=== PATIENT | male | born 1965 | race African-American/Black ===

== ENCOUNTER 2018-07-20 17:06 | Emergency (ER) | payer MEDICARE, MEDICAID ==
[~2018-07-20] VITALS: Ht 175.3 cm; Wt 64.4 kg
--- NOTE | 2018-07-20 17:06 | NUR ---
BIB RA 88,BLEEDING L ARM SHUNT EVEN AFTER 2 HRS OF CLAMPING AFTER DIALYSIS, PT A/Ox3
--- NOTE | 2018-07-20 17:30 | NUR ---
STARTED PIV RAC G20
[2018-07-20] MEDS ORDERED: LIDOCAINE 0.5% HCL 50 ML VIAL ONE (17:44)
[2018-07-20 17:56] LABS: EOSINOPHILS % (AUTO) 7.2 % (0.0-6.0); HEMATOCRIT 28 % (39-51); LYMPHOCYTES # (AUTO) 0.4 /CMM (0.8-4.8); LYMPHOCYTES % (AUTO) 7.2 % (20.0-44.0); MEAN CORPUSCULAR HGB CONC 33 g/dl (31.0-36.0); MEAN CORPUSCULAR VOLUME 97 fL (80-96); MONOCYTES # (AUTO) 0.5 /CMM (0.1-1.30); MONOCYTES % (AUTO) 8.5 % (2.0-12.0); NEUTROPHILS # (AUTO) 4.1 /CMM (1.8-8.9); NEUTROPHILS % (AUTO) 77.1 % (43.0-81.0); PLATELET COUNT (AUTO) 258 /CMM (150-450); RED BLOOD CELL COUNT(AUTO) 2.84 MIL/uL (4.5-6.0); WHITE BLOOD COUNT (AUTO) 5.4 K/uL (4.3-11.0)
[2018-07-20] MEDS ORDERED: GELATIN SPONGE,ABSORBABLE 1 SPONGE SPONGE TP ONE (17:58)
[2018-07-20] MEDS ORDERED: LIDOCAINE 1% INJ 50 ML MDV IJ ONE (18:00)
[2018-07-20 18:04] LABS: CALCIUM, SERUM 8.3 mg/dL (8.5-10.1); CREATININE 1.6 mg/dL (0.6-1.3)
--- NOTE | 2018-07-20 18:06 | NUR ---
CALLED DR LOTTIE COOK'S ANSWERING SERVICE AT . WAS PAGED.
[2018-07-20 18:16] LABS: POTASSIUM 2.3 mmol/L (3.5-5.1)
--- NOTE | 2018-07-20 18:42 | NUR ---
IV removed. Catheter intact and site benign. Pressure and 4x4 applied to site. No bleeding noted. Patient discharged to home in stable condition. Written and verbal after care instructions given. Patient verbalizes understanding of instruction.
[2018-07-20 18:44] VITALS: BP 137/64
== END 2018-07-20 18:45 | disposition home or self-care (01) ==
LOC: ER 17:08
DX: S41.112A Laceration without foreign body of left upper arm, initial encounter (principal); T82.838A Hemorrhage due to vascular prosthetic devices, implants and grafts, initial encounter; N18.6 End stage renal disease; L98.8 Other specified disorders of the skin and subcutaneous tissue; R94.31 Abnormal electrocardiogram [ECG] [EKG]; Z99.2 Dependence on renal dialysis; Z88.5 Allergy status to narcotic agent; W26.8XXA Contact with other sharp object(s), not elsewhere classified, initial encounter; Y93.89 Activity, other specified; Y92.89 Other specified places as the place of occurrence of the external cause; Y99.8 Other external cause status
CPT/HCPCS: 36415; 71045-TC; 80048-TC; 85025-TC; 85730-TC; A4606; A6402; J3490; Z7610

== ENCOUNTER 2018-08-18 14:48 | Inpatient (IN) | payer MEDICARE, MEDICAID ==
[~2018-08-18] VITALS: Ht 177.8 cm; Wt 61.2 kg
--- NOTE | 2018-08-18 14:54 | NUR ---
PT [facility] FROM [facility]; LIVES AT HOME; FOR SYNCOPAL EPISODE, PER REPORT PT HYPOTENSIVE, BS FELT PAD CUTTER 79, PT AAOX2-3, ABLE TO MAKE NEEDS KNOWN, RESPIRATIONS EVEN AND UNLABORED, NO SOB, NAD NOTED, PT ON MONITOR, [facility] Noe AT BEDSIDE
[2018-08-18] MEDS ORDERED: DEXTROSE 50%-WATER 50 ML DISP.SYRIN ONE (15:12)
[2018-08-18 15:19] LABS: HEMATOCRIT 23 % (39-51); HEMOGLOBIN 7.7 g/dL (13.5-17.5); MEAN CORPUSCULAR HGB CONC 34 g/dl (31.0-36.0); MEAN CORPUSCULAR VOLUME 101 fL (80-96); PLATELET COUNT (AUTO) 202 /CMM (150-450); RED BLOOD CELL COUNT(AUTO) 2.26 MIL/uL (4.5-6.0); WHITE BLOOD COUNT (AUTO) 4.4 K/uL (4.3-11.0)
[2018-08-18] MEDS ORDERED: DEXTROSE 50%-WATER 50 ML DISP.SYRIN IV ONE (15:30)
[2018-08-18] MEDS ORDERED: IV NS 0.9% 500 ML BAG IV ONE (15:30)
--- NOTE | 2018-08-18 15:37 | NUR ---
BS 132 AFTER 1AMP D50
[2018-08-18 15:50] LABS: ALBUMIN 2.5 g/dL (3.4-5.0); BILIRUBIN,DIRECT 0.4 mg/dL (0.0-0.2); BILIRUBIN,TOTAL 0.7 mg/dL (0.2-1.0); CALCIUM, SERUM 7.6 mg/dL (8.5-10.1); CREATININE 1.9 mg/dL (0.6-1.3); TOTAL PROTEIN, SERUM 6.1 g/dL (6.4-8.2)
[2018-08-18 15:56] LABS: POTASSIUM 1.9 mmol/L (3.5-5.1)
[2018-08-18] MEDS ORDERED: Magnesium 1GM/D5W 100ML PREMIX 100 ML IV STA (15:57)
[2018-08-18] MEDS ORDERED: POTASSIUM CHLORIDE 20 MEQ TAB.PRT.SR PO ONE ×2 (16:00→16:06)
[2018-08-18] MEDS ORDERED: METO25TA20 PO (16:03)
[2018-08-18] MEDS ORDERED: NIFE60TA69 PO (16:03)
[2018-08-18] MEDS ORDERED: FOLI0.8T22 PO (16:03)
[2018-08-18] MEDS ORDERED: LINA5TAB PO (16:03)
[2018-08-18] MEDS ORDERED: OLAN5TAB3 PO (16:03)
[2018-08-18] MEDS ORDERED: ONDA4TAB5 PO (16:03)
[2018-08-18] MEDS ORDERED: MIRT15TA7 PO (16:03)
[2018-08-18] MEDS ORDERED: GABA-532 PO (16:03)
[2018-08-18] MEDS ORDERED: SENN-22 PO (16:03)
[2018-08-18] MEDS ORDERED: LEVE100S PO (16:03)
[2018-08-18] MEDS ORDERED: CYAN10009 PO (16:03)
[2018-08-18] MEDS ORDERED: TEMA15CA PO (16:03)
[2018-08-18] MEDS ORDERED: Magnesium 1GM/D5W 100ML PREMIX 100 ML IV ONE ×2 (16:05→17:39)
--- NOTE | 2018-08-18 16:15 | NUR ---
MAGNENESIUM 1GM IVPB OVER 1HR STARTED AT 100ML/HR PER MD ORDER
[2018-08-18 16:22] LABS: LYMPHOCYTES % (MANUAL) 28 % (16-48); NEUTROPHILS % (MANUAL) 54 (42-76)
[2018-08-18 16:23] LABS: MONOCYTES % (MANUAL) 18 % (0-11.0)
[2018-08-18] MEDS: MGSO4/D5W 100 ML IV SCH ×2 (16:46→17:52)
[2018-08-18] MEDS ORDERED: ASPIRIN 81 MG TAB.CHEW PO STA (16:46)
[2018-08-18] MEDS ORDERED: ASPIRIN 81 MG TAB.CHEW ONE (16:59)
--- NOTE | 2018-08-18 17:40 | NUR ---
MONICA RN NOTES REPORT TAKEN FROM [facility]. WILL FOLLOW UP FOR SERAFIN.
--- NOTE | 2018-08-18 17:45 | NUR ---
REPORT GIVEN VANGIE CALDERON FOR SERAFIN
--- NOTE | 2018-08-18 18:09 | NUR ---
PT TRANSPORTED TO 111-[facility] VIA ACLS PROTOCOL
--- NOTE | 2018-08-18 18:12 | NUR ---
MONICA RN NOTES PT RECEIVED VIA [facility] TO 111-1. PT IS ON ROOM AIR; IV MAGNESIUM RUNNING VIA RAC IV. IV PATENT WITH NO S/SX INFECTION. MOSES AV SHUNT. PT IS A/OX4. FAMILY AT BEDSIDE. ON TELE SR 86. ORIENTED TO ROOM. VS TAKEN. MD WILL FOLLOW WITH ORDERS. BED IN LOCKED/LOWEST POSITION. CALL LIGHT IN REACH. WILL CONT TO MONITOR.
[2018-08-18 18:15] VITALS: BP 117/70
[2018-08-18] MEDS ORDERED: ZOLPIDEM TARTRATE 5 MG TABLET PO PRN (19:00)
[2018-08-18] MEDS ORDERED: Z GUARD REMEDY 2 OZ OINT TP PRN (19:00)
[2018-08-18] MEDS ORDERED: ONDANSETRON HCL/PF 4 MG/2 ML VIAL IVP PRN (19:00)
[2018-08-18] MEDS ORDERED: DEXTROSE 50%-WATER 50 ML DISP.SYRIN IV PRN (19:00)
--- NOTE | 2018-08-18 19:00 | NUR ---
RECEIVED PATIENT AWAKE,ALERT,ORIENTED ,COHERENT BUT FEELING VERY WEAK,DOES NOT TALK MUCH.NOT IN ANY DISTRESS,DEIES ANY CHEST CHEST PAIN.COMFORT CARE DONE.NEEDS ATTENDED.WILL GIVE POTASSIUM REPLACEMENT ORDERED.
--- NOTE | 2018-08-18 19:15 | NUR ---
MONICA RN NOTES REPORT GIVEN TO PM NURSE FOR SERAFIN. PT NOT IN DISTRESS. BED IN LOCKED/LOWEST POSITION/CALL LIGHT IN REACH. PM NURSE WILL CONT WITH ADMISSION PROCESS.
[2018-08-18] MEDS: POTASSIUM CL. PREMIX PERIPHER. 50 ML IV SCH ×4 (19:49→23:15)
[2018-08-18 20:00] VITALS: BP 93/49
[2018-08-18] MEDS: ACETAMINOPHEN 325 MG TABLET PO PRN (21:34)
[2018-08-18] MEDS: BLOOD SUGAR DIAGNOSTIC 1 EACH STRIP IN SCH ×2 (21:38→21:58)
[2018-08-19] VITALS (10 sets, daily range): BP systolic 96–130; BP diastolic 42–71
--- NOTE | 2018-08-19 | NUR ---
REMAINS STABLE,NO CHEST PAIN BUT STILL FEELING VERY WEAK,BUT WAS ABLE TO GET UP AND WLAK TO THE BATHROOM WITH A WALKER. NOT IN ANY DISTRESS.
[2018-08-19 02:31] LABS: CALCIUM, SERUM 7.8 mg/dL (8.5-10.1); CREATININE 2.4 mg/dL (0.6-1.3)
[2018-08-19 02:45] LABS: POTASSIUM 2.3 mmol/L (3.5-5.1)
--- NOTE | 2018-08-19 03:00 | NUR ---
CALLED MD SERVICE TO RELAY POTASSIUM LEVEL OF 2.3,AWAITING CALL BACK,BUT TEXT MESSAGE HAS BEEN SENT TO DR. HUFF.
[2018-08-19] MEDS ORDERED: POTASSIUM CHLORIDE 20 MEQ TAB.PRT.SR PO ONE ×2 (04:00→15:30)
[2018-08-19] MEDS: BLOOD SUGAR DIAGNOSTIC 1 EACH STRIP IN SCH ×4 (06:30→22:16)
[2018-08-19 07:03] LABS: BASOPHILS # (AUTO) 0.2 /CMM (0.0-0.2); BASOPHILS % (AUTO) 4.1 % (0.0-2.0); EOSINOPHILS % (AUTO) 0.8 % (0.0-6.0); LYMPHOCYTES # (AUTO) 0.5 /CMM (0.8-4.8); LYMPHOCYTES % (AUTO) 9.1 % (20.0-44.0); MEAN CORPUSCULAR HGB CONC 35 g/dl (31.0-36.0); MEAN CORPUSCULAR VOLUME 101 fL (80-96); MONOCYTES # (AUTO) 0.9 /CMM (0.1-1.30); MONOCYTES % (AUTO) 14.9 % (2.0-12.0); NEUTROPHILS # (AUTO) 4.1 /CMM (1.8-8.9); NEUTROPHILS % (AUTO) 71.1 % (43.0-81.0); PLATELET COUNT (AUTO) 147 /CMM (150-450); WHITE BLOOD COUNT (AUTO) 5.7 K/uL (4.3-11.0)
[2018-08-19 07:14] LABS: CALCIUM, SERUM 7.8 mg/dL (8.5-10.1); CREATININE 2.7 mg/dL (0.6-1.3)
[2018-08-19 07:34] LABS: POTASSIUM 2.5 mmol/L (3.5-5.1)
[2018-08-19 07:35] LABS: PHOSPHORUS 0.9 mg/dL (2.5-4.9)
--- NOTE | 2018-08-19 08:00 | NUR ---
MONICA RN NOTE RECEIVED PATIENT AWAKE,ALERT,ORIENTED NO C\O ANY DISTRESS,DENIES ANY CHEST CHEST PAIN.COMFORT CARE DONE.NEEDS ATTENDED. ON RA NO SOB NOTED AT THIS TIME , AV FISTULA WITH BRUIT SOUND AND THRILL , RT FA HL INTACT , BED IN LOWEST AND LOCKED POSITION , CALL LIGHT WITHIN REACH ON TELE MONITOR SR , PLAN OF CARE DISCUSSED WITH PATIENT , CALLED TO ION TALAVERA RN SCREED OPERATOR ,NOTICED THAT HG 6.6 AND K 2.[address] FURTHER ORDER WILL F\U
[2018-08-19 08:01] LABS: RED BLOOD CELL COUNT(AUTO) 1.87 MIL/uL (4.5-6.0)
[2018-08-19 08:02] LABS: HEMATOCRIT 19 % (39-51); HEMOGLOBIN 6.6 g/dL (13.5-17.5)
--- NOTE | 2018-08-19 08:30 | NUR ---
MONICA RN NOTE DR ZUÑIGA AT BEDSIDE . AWARE THAT HG 6.6 REORDER TO REPEAT CBC LATTER ON TODAY Addendum: 08/19/18 at 1829 by FREEDOM GUERRERO RN DR THA LEAL AT BEDSIDE
[2018-08-19] MEDS: POTASSIUM PHOSPHATE MM 5 MMOL in IV D5W 100 ML IV SCH ×2 (09:40→11:52)
[2018-08-19] MEDS: POTASSIUM CL. PREMIX PERIPHER. 50 ML IV SCH ×4 (11:37→15:46)
[2018-08-19] MEDS: ACETAMINOPHEN 325 MG TABLET PO PRN (11:40)
--- NOTE | 2018-08-19 12:38 | NUR ---
MONICA RN NOTE ION AT BEDSIDE AWARE OF PATIENT C\O BOTH LEGS PAIN WILL F\U , SPOKE WITH FAMILY
[2018-08-19 13:18] LABS: EOSINOPHILS % (MANUAL) 1 % (0-4); LYMPHOCYTES % (MANUAL) 17 % (16-48); MONOCYTES % (MANUAL) 7 % (0-11.0); NEUTROPHILS % (MANUAL) 75 (42-76)
[2018-08-19 13:42] LABS: BILIRUBIN,TOTAL 0.7 mg/dL (0.2-1.0); CALCIUM, SERUM 7.8 mg/dL (8.5-10.1); CREATININE 2.7 mg/dL (0.6-1.3); MAGNESIUM 1.8 mg/dL (1.8-2.4); PHOSPHORUS 1.1 mg/dL (2.5-4.9); TOTAL PROTEIN, SERUM 4.9 g/dL (6.4-8.2)
[2018-08-19 13:50] LABS: POTASSIUM 2.6 mmol/L (3.5-5.1)
[2018-08-19 14:00] LABS: BASOPHILS # (AUTO) 0.1 /CMM (0.0-0.2); EOSINOPHILS % (AUTO) 2.4 % (0.0-6.0); LYMPHOCYTES # (AUTO) 1.1 /CMM (0.8-4.8); LYMPHOCYTES % (AUTO) 20.2 % (20.0-44.0); MEAN CORPUSCULAR HGB CONC 35 g/dl (31.0-36.0); MEAN CORPUSCULAR VOLUME 102 fL (80-96); MONOCYTES # (AUTO) 0.7 /CMM (0.1-1.30); MONOCYTES % (AUTO) 13.7 % (2.0-12.0); NEUTROPHILS # (AUTO) 3.4 /CMM (1.8-8.9); NEUTROPHILS % (AUTO) 61.7 % (43.0-81.0); PLATELET COUNT (AUTO) 138 /CMM (150-450); WHITE BLOOD COUNT (AUTO) 5.5 K/uL (4.3-11.0)
[2018-08-19 14:01] LABS: RED BLOOD CELL COUNT(AUTO) 1.78 MIL/uL (4.5-6.0)
[2018-08-19 14:04] LABS: HEMATOCRIT 18 % (39-51); HEMOGLOBIN 6.3 g/dL (13.5-17.5)
--- NOTE | 2018-08-19 14:30 | NUR ---
MONICA STARKEY CALLED TO DR ALMAZAN LEFT A MESSAGE ABOUT HG 6.3 WILL AWAIT FOR RETURN CALL
--- NOTE | 2018-08-19 15:00 | NUR ---
MONICA RN NOTE SPOKE WITH ION TALAVERA NOTIFIED THAT HG 6.3 OK TO TRANSFUSE 1 INIT PRBC
--- NOTE | 2018-08-19 15:13 | NUR ---
MONICA RN NOTE CONSENT FOR BLOOD TRANSFUSION SIGNED BY PATIENT
--- NOTE | 2018-08-19 15:47 | NUR ---
MONICA VENCES NOTE DUPLICATE ORDER FOR HCL IV Addendum: 08/19/18 at 1830 by FREEDOM GUERRERO RN KCL DUPLICATE ORDER
--- NOTE | 2018-08-19 15:51 | NUR ---
MONICA RN NOTE DR ALMAZAN CALLED BACK OK TO TRANSFUSE 1 UNIT PRBC AND DO ADDITIONAL K PHOS INFUSION AND REPEAT CHEM 7 ,Mag,K,PHOS AFTER INFUSION PHOS
[2018-08-19] MEDS ORDERED: POTASSIUM CL. PREMIX PERIPHER. 50 ML IV SCH (16:00)
[2018-08-19] MEDS ORDERED: POTASSIUM PHOSPHATE MM 15 MMOL in IV D5W 250 ML IV SCH (16:00)
[2018-08-19] MEDS: Potassium Phosphate meq 11 MEQ in IV D5W 100 ML IV SCH ×2 (16:24→19:29)
[2018-08-19 16:27] LABS: BAND % (MANUAL) 1 % (0.0-5.0); EOSINOPHILS % (MANUAL) 3 % (0-4); LYMPHOCYTES % (MANUAL) 22 % (16-48); MONOCYTES % (MANUAL) 5 % (0-11.0); NEUTROPHILS % (MANUAL) 69 (42-76)
--- NOTE | 2018-08-19 16:52 | NUR ---
WINDOWS SERVER ADMINISTRATOR NOTE CALLED BLOOD BANK ,BLOOD NOT READY YET
--- NOTE | 2018-08-19 17:00 | NUR ---
DATABASE TECHNICIAN NOTE C\O BOTH LEGS PAIN ,STATED THAT TYLENOL NOT HELPING. ION VENCES ACCESS DATABASE DEVELOPER NOTIFIED WITH ORDER TRAMADOL GIVEN,ORDER CARRIED OUT
[2018-08-19] MEDS: TRAMADOL HCL 50 MG TABLET PO PRN (17:13)
--- NOTE | 2018-08-19 17:16 | NUR ---
DIRECTOR FOOD SAFETY NOTE TRAMADOL PO FOR BOTH LEGS PAIN GIVEN ORDERED
[2018-08-19] MEDS: INSULIN REGULAR, HUMAN 100 UNIT/ML 3 ML VIAL SQ PRN (17:59)
--- NOTE | 2018-08-19 18:17 | NUR ---
CARLOS VENCES NOTE CALLED BLOOD BANK ,BLOOD NORT READY YET SPOKE WITH ADOLFO Addendum: 08/19/18 at 1828 by FREEDOM GUERRERO RN BLOOD NOT READY YET
[2018-08-19 21:14] LABS: POTASSIUM 3.1 mmol/L (3.5-5.1)
[2018-08-19 21:15] LABS: CALCIUM, SERUM 8.1 mg/dL (8.5-10.1)
[2018-08-19 23:27] LABS: CALCIUM, SERUM 8.1 mg/dL (8.5-10.1); CREATININE 2.9 mg/dL (0.6-1.3); MAGNESIUM 1.6 mg/dL (1.8-2.4); PHOSPHORUS 1.7 mg/dL (2.5-4.9)
[2018-08-19 23:32] LABS: POTASSIUM 2.7 mmol/L (3.5-5.1)
[2018-08-20] VITALS (7 sets, daily range): BP systolic 109–130; BP diastolic 70–85
--- NOTE | 2018-08-20 00:30 | NUR ---
RN NOTE RECEIVED REPORT FROM VARSHA RN, KIMBERLY RN NOTIFIED DR REFUGIO AGUIRRE REGARDING POTASSIUM 2.7, AWAITING FOR MD TO CALL BACK
--- NOTE | 2018-08-20 00:51 | NUR ---
RN NOTE RECEIVED CALL FROM DR REFUGIO AGUIRRE, NEW ORDER OF POTASSIUM 40 MEQ PO ONCE IS GIVEN AND CARRIED OUT
[2018-08-20] MEDS ORDERED: POTASSIUM CHLORIDE 20 MEQ TAB.PRT.SR PO ONE ×2 (01:00→13:30)
--- NOTE | 2018-08-20 01:00 | NUR ---
RN NOTE NOTIFIED DR REFUGIO AGUIRRE REGARDING MG 1.6, MD DR REFUGIO AGUIRRE ORDERED TO REPEAT CBC, BMP, MG, PHOSPHORUS AT 8AM
[2018-08-20 06:30] LABS: BASOPHILS # (AUTO) 0.1 /CMM (0.0-0.2); BASOPHILS % (AUTO) 2.1 % (0.0-2.0); EOSINOPHILS % (AUTO) 3.3 % (0.0-6.0); HEMATOCRIT 23 % (39-51); LYMPHOCYTES # (AUTO) 0.4 /CMM (0.8-4.8); LYMPHOCYTES % (AUTO) 6.1 % (20.0-44.0); MEAN CORPUSCULAR HGB CONC 34 g/dl (31.0-36.0); MEAN CORPUSCULAR VOLUME 100 fL (80-96); MONOCYTES # (AUTO) 0.9 /CMM (0.1-1.30); MONOCYTES % (AUTO) 15.8 % (2.0-12.0); NEUTROPHILS # (AUTO) 4.2 /CMM (1.8-8.9); NEUTROPHILS % (AUTO) 72.7 % (43.0-81.0); PLATELET COUNT (AUTO) 132 /CMM (150-450); RED BLOOD CELL COUNT(AUTO) 2.33 MIL/uL (4.5-6.0); WHITE BLOOD COUNT (AUTO) 5.8 K/uL (4.3-11.0)
[2018-08-20 07:41] LABS: ALBUMIN 2.2 g/dL (3.4-5.0); BILIRUBIN,TOTAL 1.2 mg/dL (0.2-1.0); CALCIUM, SERUM 8.1 mg/dL (8.5-10.1); CREATININE 3.1 mg/dL (0.6-1.3); MAGNESIUM 1.5 mg/dL (1.8-2.4); PHOSPHORUS 1.4 mg/dL (2.5-4.9); TOTAL PROTEIN, SERUM 5.4 g/dL (6.4-8.2)
[2018-08-20] MEDS: TRAMADOL HCL 50 MG TABLET PO PRN ×2 (07:58→19:50)
--- NOTE | 2018-08-20 08:00 | NUR ---
RN NOTE RECEIVED PATIENT, AWAKE, A/O X4, ON ROOM AIR, BREATHING UNLABORED,ABLE TO MAKE NEEDS KNOWN, NO SIGN OF DISTRESS NOTED, DENIES ANY CHEST PAIN OR ANY KIND OF PAIN. ON TELEMONITOR: SINUS RHYTHM HR AT 96 AT THIS TIME, SKIN WARM TO TOUCH, IV LINE TO RIGHT ARM G [address] AND INTACT: SL, G 20 ON THE R FA IN PLACE AND INTACT: SL. AV FISTULA ON THE L ARM: WITH BRUIT SOUND AND THRILL , PATIENT AMBULATORY, ENCOURAGE TO CALL FOR ASSISTANCE, CALL LIGHT PLACE WITHIN EASY REACH, SAFETY MEASURES OBSERVED AND MAINTAINED, BED IN LOWEST AND LOCKED POSITION , PLAN OF CARE DISCUSSED WITH PATIENT, WILL CONTINUE TO MONITOR PATIENT CLOSELY
[2018-08-20 08:36] LABS: THYROID STIMULATING HORMONE 1.1 uIU/mL (0.358-3.74)
[2018-08-20] MEDS: BLOOD SUGAR DIAGNOSTIC 1 EACH STRIP IN SCH ×4 (09:22→21:41)
[2018-08-20] MEDS: INSULIN REGULAR, HUMAN 100 UNIT/ML 3 ML VIAL SQ PRN ×2 (12:35→21:41)
[2018-08-20] MEDS ORDERED: MAGNESIUM OXIDE 400 MG TABLET PO ONE (13:30)
--- NOTE | 2018-08-20 20:40 | NUR ---
RN NOTES ENDORSED FOR CONTINUITY OF CARE. NO ACUTE CHANGES WITHIN THE SHIFT. ALL NURSING NEEDS ATTENDED AND MET. SAFETY MEASURES IN PLACE AT ALL TIMES. BED LOW AND LOCKED POSITION. CALL LIGHT WITHIN REACH AT ALL TIME
--- NOTE | 2018-08-20 22:30 | NUR ---
RN NOTE NOTIFIED DR REFUGIO AGUIRRE REGARDING MEDICATION RECON., PER MD HE WILL GO OVER MED RECON ONCE HE HAS TIME
--- NOTE | 2018-08-20 22:54 | NUR ---
RN NOTE NOTIFIED DR REFUGIO AGUIRRE THAT PATIENT DID NOT HAVE BOWEL MOVEMNET X 2 DAYS AND PATIENT REQUESTING MEDICATION, NEW ORDER BY DR HUFF IS GIVEN AND CARRIED OUT
[2018-08-21] MEDS: LEVETIRACETAM SOL (5 ML) 100 MG/ML UDC PO SCH ×3 (00:23→23:57)
[2018-08-21] MEDS: MIRTAZAPINE 15 MG TABLET PO SCH ×2 (00:23→21:28)
[2018-08-21 04:00] VITALS: BP_SYST 103; BP_SYST 113; BP_DIAS 48; BP_DIAS 78
[2018-08-21 07:03] LABS: BASOPHILS # (AUTO) 0.2 /CMM (0.0-0.2); BASOPHILS % (AUTO) 2.6 % (0.0-2.0); EOSINOPHILS % (AUTO) 2.5 % (0.0-6.0); HEMATOCRIT 25 % (39-51); HEMOGLOBIN 8.5 g/dL (13.5-17.5); LYMPHOCYTES # (AUTO) 0.9 /CMM (0.8-4.8); LYMPHOCYTES % (AUTO) 12.1 % (20.0-44.0); MEAN CORPUSCULAR HGB CONC 34 g/dl (31.0-36.0); MEAN CORPUSCULAR VOLUME 102 fL (80-96); MONOCYTES # (AUTO) 1.3 /CMM (0.1-1.30); MONOCYTES % (AUTO) 16.9 % (2.0-12.0); NEUTROPHILS # (AUTO) 4.9 /CMM (1.8-8.9); NEUTROPHILS % (AUTO) 65.9 % (43.0-81.0); PLATELET COUNT (AUTO) 103 /CMM (150-450); RED BLOOD CELL COUNT(AUTO) 2.47 MIL/uL (4.5-6.0); WHITE BLOOD COUNT (AUTO) 7.5 K/uL (4.3-11.0)
[2018-08-21 07:16] LABS: CALCIUM, SERUM 8.5 mg/dL (8.5-10.1); CREATININE 2.9 mg/dL (0.6-1.3); MAGNESIUM 1.5 mg/dL (1.8-2.4); PHOSPHORUS 1.5 mg/dL (2.5-4.9); POTASSIUM 3.1 mmol/L (3.5-5.1)
[2018-08-21] MEDS: BLOOD SUGAR DIAGNOSTIC 1 EACH STRIP IN SCH ×4 (07:30→21:36)
[2018-08-21 08:00] VITALS: BP 111/77
[2018-08-21] MEDS ORDERED: K PHOS NEUTRAL 250 MG TABLET PO ONE (08:00)
[2018-08-21] MEDS: MAGNESIUM OXIDE 400 MG TABLET PO SCH ×2 (09:08→17:00)
[2018-08-21] MEDS: GABAPENTIN 100 MG CAPSULE PO SCH ×3 (09:08→17:00)
[2018-08-21] MEDS: CYANOCOBALAMIN 500 MCG TABLET PO SCH (09:08)
[2018-08-21] MEDS: SENNOSIDES/DOCUSATE SODIUM 1 TAB TABLET PO SCH (09:08)
[2018-08-21] MEDS: VIT B CMPLX 3/FA/VIT C/BIOTIN 1 TAB TABLET PO SCH (09:09)
[2018-08-21] MEDS: POTASSIUM PHOSPHATE MM 5 MMOL in IV D5W 100 ML IV SCH ×2 (09:15→10:00)
[2018-08-21] MEDS: NEUTRA PHOS 1 POWD.PACKET PO SCH ×2 (14:51→17:00)
[2018-08-21] MEDS: TRAMADOL HCL 50 MG TABLET PO PRN (14:51)
[2018-08-21 16:00] VITALS: BP 111/83
--- NOTE | 2018-08-21 19:40 | NUR ---
RN NOTE, RECEIVED PATIENT, SLEEPING IN BED BUT EASILY AROUSABLE TO VERBAL STIMULI, ON ROOM AIR, BREATHING EVEN AND UNLABORED NO S/S OF SOB/ACUTE DISTRESS, IV ACCES PATENT AND INTACT S/L, PATIENT AMBULATORY AND ABLE TO VERBALIZED NEEDS, CALL LIGHT PLACE WITHIN EASY REACH, SAFETY MEASURES IN PLACED, BED IN LOWEST AND LOCKED POSITION , WILL CONTINUE TO MONITOR PATIENT CLOSELY.
[2018-08-21 20:00] VITALS: BP 105/69
[2018-08-21] MEDS: INSULIN REGULAR, HUMAN 100 UNIT/ML 3 ML VIAL SQ PRN (21:37)
[2018-08-22 04:00] VITALS: BP 126/95
[2018-08-22] MEDS: TRAMADOL HCL 50 MG TABLET PO PRN (04:16)
[2018-08-22 07:28] LABS: BASOPHILS # (AUTO) 0.1 /CMM (0.0-0.2); BASOPHILS % (AUTO) 1.4 % (0.0-2.0); EOSINOPHILS % (AUTO) 1.4 % (0.0-6.0); HEMATOCRIT 25 % (39-51); HEMOGLOBIN 8.2 g/dL (13.5-17.5); LYMPHOCYTES # (AUTO) 1.3 /CMM (0.8-4.8); LYMPHOCYTES % (AUTO) 15.7 % (20.0-44.0); MEAN CORPUSCULAR HGB CONC 34 g/dl (31.0-36.0); MEAN CORPUSCULAR VOLUME 103 fL (80-96); MONOCYTES # (AUTO) 1.2 /CMM (0.1-1.30); MONOCYTES % (AUTO) 15.1 % (2.0-12.0); NEUTROPHILS # (AUTO) 5.5 /CMM (1.8-8.9); NEUTROPHILS % (AUTO) 66.4 % (43.0-81.0); PLATELET COUNT (AUTO) 104 /CMM (150-450); RED BLOOD CELL COUNT(AUTO) 2.39 MIL/uL (4.5-6.0); WHITE BLOOD COUNT (AUTO) 8.2 K/uL (4.3-11.0)
[2018-08-22] MEDS: BLOOD SUGAR DIAGNOSTIC 1 EACH STRIP IN SCH ×3 (07:35→17:30)
[2018-08-22 08:00] VITALS: BP 134/95
--- NOTE | 2018-08-22 08:00 | NUR ---
Received patient in bed alert and oriented to time and place , pt is pale looking , no acute respiratory distress noted , pt deines pain , vital signs stable , blood sugar checked 98 , will continue with care
[2018-08-22 08:06] LABS: CALCIUM, SERUM 7.5 mg/dL (8.5-10.1); MAGNESIUM 1.5 mg/dL (1.8-2.4); PHOSPHORUS 1.7 mg/dL (2.5-4.9); POTASSIUM 3.3 mmol/L (3.5-5.1)
[2018-08-22] MEDS: LEVETIRACETAM SOL (5 ML) 100 MG/ML UDC PO SCH (08:45)
[2018-08-22] MEDS: VIT B CMPLX 3/FA/VIT C/BIOTIN 1 TAB TABLET PO SCH (08:45)
[2018-08-22] MEDS: MAGNESIUM OXIDE 400 MG TABLET PO SCH ×2 (08:45→17:07)
[2018-08-22] MEDS: NEUTRA PHOS 1 POWD.PACKET PO SCH (08:46)
[2018-08-22] MEDS: GABAPENTIN 100 MG CAPSULE PO SCH ×3 (08:46→17:07)
[2018-08-22] MEDS: CYANOCOBALAMIN 500 MCG TABLET PO SCH (08:46)
[2018-08-22] MEDS: SENNOSIDES/DOCUSATE SODIUM 1 TAB TABLET PO SCH (08:46)
[2018-08-22 09:10] LABS: C-REACTIVE PROTEIN 3.7 mg/dL (0.0-0.9); THYROID STIMULATING HORMONE 1.393 uIU/mL (0.358-3.74)
[2018-08-22 12:00] VITALS: BP 108/77
--- NOTE | 2018-08-22 15:00 | NUR ---
patient started on dialysis by dialysis nurse ,tolerating fairly well ,will continue with care after dialysis
[2018-08-22] MEDS ORDERED: MAGN400T26 PO (16:03)
[2018-08-22] MEDS ORDERED: FURO-144 PO (16:03)
[2018-08-22] MEDS ORDERED: POTA10CA43 PO (16:03)
--- NOTE | 2018-08-22 16:39 | NUR ---
As per dialysis nurse patient did not complete dialysis because line clotted MD Guerra aware said to stop dialysis , post dialysis vital stable , no acute distress at this time at bed site
--- NOTE | 2018-08-22 17:00 | NUR ---
pt discharged home with , dc instructiongs given , verbalized understanding , hl removed
[2018-08-23 08:10] LABS: IMMUNOGLOBULIN A, SERUM 529 mg/dL (90-386); IMMUNOGLOBULIN G, SERUM 1193 mg/dL (700-1600); IMMUNOGLOBULIN M, SERUM 44 mg/dL (20-172)
[2018-08-23 11:12] LABS: *SPE ALBUMIN 2.9 g/dL (2.9-4.4); *SPE ALPHA-1-GLOBULIN 0.4 g/dL (0.0-0.4); *SPE ALPHA-2-GLOBULIN 0.5 g/dL (0.4-1.0); *SPE BETA GLOBULIN 0.9 g/dL (0.7-1.3); *SPE M-SPIKE Not Observed g/dL (Not Observed); *SPEGAMMA GLOBULIN 1.1 g/dL (0.4-1.8)
[2018-08-23] MEDS ORDERED: ETOMIDATE 2 MG/ML VIAL ONE (19:42)
== END 2018-08-22 17:45 | disposition home or self-care (01) | DRG 468 ==
LOC: ER 14:51 → TELE 16:39 → TELE-TD 17:41 → TELE1 08-19 20:57 → MEDSG1 08-20 15:56
PROVIDERS: ADMIT Nurse Practitioner Acute Care; ATTEND Nurse Practitioner Acute Care
PROC: 30233N1 Transfusion of Nonautologous Red Blood Cells into Peripheral Vein, Percutaneous Approach (ICD-10-PCS; principal; 2018-08-19)
PROC: 5A1D70Z Performance of Urinary Filtration, Intermittent, Less than 6 Hours Per Day (ICD-10-PCS; 2018-08-20)
DX: E11.22 Type 2 diabetes mellitus with diabetic chronic kidney disease (principal); I21.A1 Myocardial infarction type 2; D61.818 Other pancytopenia; E44.0 Moderate protein-calorie malnutrition; G93.41 Metabolic encephalopathy; N18.6 End stage renal disease; I12.0 Hypertensive chronic kidney disease with stage 5 chronic kidney disease or end stage renal disease; E11.649 Type 2 diabetes mellitus with hypoglycemia without coma; D63.8 Anemia in other chronic diseases classified elsewhere; I67.2 Cerebral atherosclerosis; E87.6 Hypokalemia; E83.39 Other disorders of phosphorus metabolism; E83.42 Hypomagnesemia; Z99.2 Dependence on renal dialysis; G40.909 Epilepsy, unspecified, not intractable, without status epilepticus; Z90.49 Acquired absence of other specified parts of digestive tract; F17.210 Nicotine dependence, cigarettes, uncomplicated; Z79.84 Long term (current) use of oral hypoglycemic drugs; Z79.899 Other long term (current) drug therapy; R62.7 Adult failure to thrive; Z68.1 Body mass index [BMI] 19.9 or less, adult; E88.09 Other disorders of plasma-protein metabolism, not elsewhere classified; R94.31 Abnormal electrocardiogram [ECG] [EKG]; Z86.718 Personal history of other venous thrombosis and embolism; Z87.01 Personal history of pneumonia (recurrent); K76.0 Fatty (change of) liver, not elsewhere classified; J43.9 Emphysema, unspecified; H02.401 Unspecified ptosis of right eyelid; D63.1 Anemia in chronic kidney disease; R55 Syncope and collapse
CPT/HCPCS: 36415; 70450-TC; 71045-TC; 76700-TC; 80048-TC; 80053-TC; 80061-TC; 80076-TC; 82140-TC; 82728-TC; 82784; 82962-TC; 83540-TC; 83605-TC; 83735-TC; 84100-TC; 84155; 84165; 84443-TC; 84484-TC; 85025-TC; 85378-TC; 85730-TC; 86140-TC; 86334; 86431-TC; 86706; 86803; 86850-TC; 86921-TC; 87040-TC; 87081-TC; 87340; 90935-TC; 93307-TC; 93880-TC; A6402; G0378; J1815; J1953; J3475; J3480; J3490; J7040; J7050; J7060; P9016-BL